=== PATIENT | male | born 1940 | race Caucasian/White ===

== ENCOUNTER 2021-11-21 15:03 | Emergency (ER) | payer OTHER ==
[2021-11-21 17:06] LABS: Absolute Lymphocytes (CBC) 1.8 K/uL (0.7-4.9); Hematocrit 21.3 % (39.6-49.0); Lymphocytes % 24.5 % (15.3-44.8); MPV 7.6 fL (7.6-11.3); RBC Red Blood Cell Count 2.12 M/uL (4.33-5.43)
[2021-11-21 17:11] LABS: Protime INR 1.53
[2021-11-21 17:23] LABS: Albumin 3.6 g/dL (3.4-5.0); Bilirubin Total 0.3 mg/dL (0.2-1.0); Protein, Total 6.3 g/dL (6.4-8.2)
--- NOTE | 2021-11-21 18:02 | RAD REPORT ---
EXAM DESCRIPTION: CT - Abdomen Angio - 11/21/2021 5:50 pm CLINICAL HISTORY: Chest pain radiating to the back. Lower abdominal pain, Rectal bleeding COMPARISON: No comparisons TECHNIQUE: CT angiography of the abdomen and pelvis was performed with MIPs. All CT scans are performed using dose optimization technique as appropriate and may include automated exposure control or mA/KV adjustment according to patient size. FINDINGS: The inferior lung aquino are clear. Cholelithiasis. The liver, spleen, pancreas, right adrenal gland are normal. 8 mm nodule is seen left adrenal gland p robably an adenoma. Left kidney is absent and the right kidney is hypertrophied. Abdominal aorta demonstrates mild plaquing at the origin of the celiac axis, SMA and right renal nadia ry. Mild plaquing also noted at the bifurcation of the abdominal aorta. No aneurysm or dissection see n. No significant flow abnormality is identified. Sigmoid diverticulosis coli is present without diverticulitis. Mild lumbar degenerative changes. IMPRESSION: No significant flow abnormality is identified. Cholelithiasis.
[2021-11-21] MEDS ORDERED: NA CHLORIDE 0.9% 500 ML ONE (18:09)
[2021-11-21 18:14] LABS: Urine Blood Negative (Negative); Urine Glucose Negative (Negative); Urine Protein Negative (Negative); Urine Specific Gravity 1.015 (1.005-1.030)
[2021-11-21 18:36] LABS: Urine Bacteria <20 /HPF (NONE SEEN)
[2021-11-21 18:43] LABS: Urine RBC <5 /HPF (NONE SEEN)
--- NOTE | 2021-11-21 19:31 | ER ---
Nurse's Notes [facility] Name: Inocencio Krishna Age: 81 yrs Sex: Male : 1940 Arrival Date: 11/21/2021 Time: 15:17 Bed 8 Private MD: Regis Jeffery V Diagnosis: GI Bleed;Anemia;Atrial Fibrillation;Anticoagulation Presentation: 11/21 15:36 Chief complaint: Patient states: Blood in my stool on and off for 1 week. Was at my ld1 [place] office this morning - they asked me to come to ER because of blood in my stool. Coronavirus screen: At this time, the client does not indicate any symptoms associated with coronavirus-19. Ebola Screen: No symptoms or risks identified at this time. Initial Sepsis Screen: Does the patient meet any 2 criteria? No. Patient's initial sepsis screen is negative. Does the patient have a suspected source of infection? No. Patient's initial sepsis screen is negative. Risk Assessment: Do you want to hurt yourself or someone else? Patient reports no desire to harm self or others. Onset of symptoms was November 21, 2021. 15:36 Method Of Arrival: Ambulatory ld1 15:36 Acuity: CLARENCE 3 ld1 Triage Assessment: 15:37 General: Appears in no apparent distress. comfortable, Behavior is calm, cooperative, ld1 appropriate for age. Pain: Denies pain. EENT: No signs and/or symptoms were reported regarding the EENT system. Neuro: Level of Consciousness is awake, alert, obeys commands, Oriented to person, place, time, situation. Cardiovascular: Capillary refill < 3 seconds Patient's skin is warm and dry. Respiratory: Airway is patent Respiratory effort is even, unlabored. GI: Abdomen is flat, non-distended, Reports bloody stool. : No signs and/or symptoms were reported regarding the genitourinary system. Derm: No signs and/or symptoms reported regarding the dermatologic system. Musculoskeletal: No signs and/or symptoms reported regarding the musculoskeletal system. Historical: - Allergies: 15:37 No Known Allergies; ld1 - Home Meds: 15:37 Xarelto 2.5 mg oral tab 1 tab 2 times per day [Active]; ld1 - PMHx: 15:37 Atrial fibrillation; Hypertensive disorder; ld1 - PSHx: 15:37 Heart bypass; Left kidney removal; ld1 - Immunization history:: Adult Immunizations up to date, Client reports receiving the 2nd dose of the Covid vaccine. - Social history:: Smoking status: Patient denies any tobacco usage or history of. Patient/guardian denies using alcohol. Screenin:45 Abuse screen: Denies threats or abuse. Denies injuries from another. 6 16:45 Nutritional screening: No deficits noted. Tuberculosis screening: No symptoms or risk [facility] factors identified. Fall Risk Assessment: 16:20 General: PT MOVED FROM LOBBY TO ER ROOM 8. jh6 16:33 General: Appears in no apparent distress. Behavior is calm, cooperative. Pain: 6 Complains of pain in abdomen Pain currently is 3 out of 10 on a pain scale. Cardiovascular: Rhythm is atrial fibrillation. GI: Abdomen is flat, non-distended, Bowel sounds present X 4 quads. Abd is soft and non tender Reports bloody stool, Patient currently denies nausea, vomiting. 17:08 Reassessment: No changes from previously documented assessment. [facility] 17:46 Reassessment: Patient and/or family updated on plan of care and expected duration. Pain ap3 level reassessed. Patient is alert, oriented x 3, equal unlabored respirations, skin warm/dry/pink. 18:57 Reassessment: No changes from previously documented assessment. Patient and/or family ap3 updated on plan of care and expected duration. Pain level reassessed. Patient is alert, oriented x 3, equal unlabored respirations, skin warm/dry/pink. 20:55 General: blood transfusion being done. see paper charting for vitals . as6 11/22 01:58 General: 2nd unit of blood being given, infusion continued during transfer . as6 Vital Signs: 11/21 15:36 BP 111 / 69; Pulse 124; Resp 18; Temp 98.1(TE); Pulse Ox 100% on R/A; Weight 80.74 kg; ld1 Height 6 ft. 2 in. (187.96 cm); Pain 0/10; 17:09 BP 109 / 65; Pulse 114; Resp 17; Pulse Ox 100% ; Pain 2/10; jh6 17:46 BP 126 / 90; Pulse 113; Pulse Ox 100% ; ap3 18:57 BP 104 / 63; Pulse 136; Pulse Ox 100% on R/A; ap3 20:43 BP 111 / 75; Pulse 118; Resp 18 S; Temp 98.4(TE); Pulse Ox 100% on R/A; as6 22:01 BP 118 / 65; Pulse 106; Resp 29 S; Pulse Ox 100% on R/A; as6 22:40 BP 113 / 82; Pulse 113; Resp 20; Pulse Ox 100% on R/A; mw2 23:30 BP 113 / 82; Pulse 108; Resp 24; Pulse Ox 98% on R/A; lp1 06 01:10 BP 102 / 53; Pulse 105; Resp 18 S; Pulse Ox 99% on R/A; as6 01:57 BP 111 / 78; Pulse 110; Resp 20 S; Pulse Ox 100% on R/A; as6 11/21 15:36 Body Mass Index 22.85 (80.74 kg, 187.96 cm) ld1 ED Course: 11/21 15:17 Patient arrived in ED. am2 15:18 Regis Jeffery MD is Private Physician. am2 15:22 Tushar Beth DO is Attending Physician. ms3 15:37 Triage completed. ld1 15:37 Arm band placed on right wrist. ld1 16:45 Bed in low position. Call light in reach. Side rails up X 1. Adult w/ patient. jh6 16:50 Inserted saline lock: 20 gauge in left antecubital area, using aseptic technique. Blood jh6 collected. 16:50 Served as a cardiopulmonary technician and eeg tech during rectal exam. jh6 17:00 COVID swab sent to lab. jh6 17:05 Sigrid Patel, CLOVER is Primary Nurse. jh6 17:52 CT Pelvis Angio In Process Unspecified. EDMS 17:52 CT Abdomen - Angio In Process Unspecified. EDMS 19:12 Primary Nurse role handed off by Sigrid Patel RN kj1 19:12 role handed off by Lisa Neves RN kj1 19:13 Jb Obrien, CLOVER is Primary Nurse. as6 19:26 initiated a transfer with Haritha from [facility]. mw2 19:41 Octaviano Black NP is PHCP. pm1 21:34 contacted [facility] to get a status update on the transfer Haritha said " after the mw2 unit of blood we need a repeat Hemoglobin and Hematocrit but as of right not [facility] doesn't have any beds we can try [facility], but I don't think they will take a hemoglobin of 7.0.". 21:50 initiated a transfer with Eleanor from [facility]. mw2 22:10 [facility] denied due to capacity. Eleanor from [place] [id number] Center is looking for bed placement at [facility]. 22:42 connected Octaviano Black FOREIGN BANKNOTE TELLER TRADER with the Doctor from [facility]. mw2 23:35 [facility] denied due to capacity. Eleanor from [place] [id number] Transfer [place] is trying [facility] [place]. 23:43 connected Octaviano Black NP with the Hospitalist from [facility]. mw2 11/22 00:31 administrative approval given by Haritha Dutta/ patient has been accepted to [address] ICU bed 12/Dr. Pisano accepted the patient in transfer/report to be called to [phone]. 01:35 [facility] ETA 20 minutes. mw2 01:57 Patient transferred, IV remains in place. as6 Administered Medications: 11/21 18:17 Drug: Sodium Chloride 0.9% 500 ml Route: IVPB; Site: left antecubital; jh6 22:14 Follow up: Response: No adverse reaction; IV Status: Completed infusion; IV Intake: as6 500ml 22:03 CANCELLED (Other Intervention Used): Metoprolol 25 mg PO once as6 22:14 Drug: Metoprolol 5 mg Route: IVP; Site: left antecubital; as6 11/22 01:16 Follow up: Response: No adverse reaction as6 00:48 Drug: ProTONIX (pantoprazole) 40 mg Route: IVP; Site: left antecubital; as6 01:16 Follow up: Response: No adverse reaction as6 01:58 Drug: NS 0.9% 500 ml Route: IV; Rate: bolus; Site: left antecubital; as6 01:58 Follow up: Response: No adverse reaction; IV Status: Infusion continued upon transfer as6 Medication: 01:14 VIS not applicable for this client. as6 Intake: 11/21 22:14 IV: 500ml; Total: 500ml. as6 Outcome: 19:31 ER care complete, transfer ordered by ms3 11/22 01:57 Transferred by ground EMS to [facility], Transfer form completed. as6 Condition: stable Instructed on the need for transfer. 01:59 Patient left the ED. as6 Signatures: Dispatcher [employer] EDMS Cheryl Carney, RN RN lp1 Octaviano Black, FOREIGN BANKNOTE TELLER TRADER FOREIGN BANKNOTE TELLER TRADER pm1 Lisa Mesa am2 Lisa Neves RN RN ap3 Yaz Medina mw2 Benedicto, Katheryn kj1 Tushar Beth, DO DO ms3 Aura Faustin RN RN ld1 Jb Obrien RN RN as6 Sigrid Patel RN RN jh6 Corrections: (The following items were deleted from the chart) 11/21 15:39 15:37 PMHx: Hypercholesterolemia; ld1 ld1 17:08 17:05 General: Appears in no apparent distress. Behavior is calm, cooperative, [place] [address] 17:08 17:05 Pain: Complains of pain in abdomen Pain currently is 3 out of 10 on a pain scale. [place] [address] 17:08 17:05 GI: Abdomen is flat, non-distended, Bowel sounds present X 4 quads. Abd is soft [facility] and non tender Reports bloody stool, Patient currently denies nausea, vomiting, [facility] 17:08 17:05 Cardiovascular: Rhythm is atrial fibrillation [place] [address] 17:09 17:08 Inserted saline lock: 20 gauge in left antecubital area, using aseptic technique. [facility] Blood collected. [facility]
--- NOTE | 2021-11-21 19:31 | EDPHYS ---
Physician Documentation [facility] Name: Inocencio Krishna Age: 81 yrs Sex: Male : 1940 Arrival Date: 11/21/2021 Time: 15:17 Bed 8 Private MD: Regis Jeffery V ED Physician Tushar Beth HPI: 11/21 16:15 This 81 yrs old Male presents to ER via Ambulatory with complaints of AFIB, Bloody ms3 Stools. 16:15 The patient presents to the emergency department with rectal bleeding, a moderate ms3 amount, bright red blood with bowel movement, 10 times since symptom onset. Onset: The symptoms/episode began/occurred 2 day(s) ago. Abdominal pain: described as achy, located in the left lower quadrant, that does not radiate. Modifying factors: The symptoms are alleviated by nothing, the symptoms are aggravated by nothing. Associated signs and symptoms: Pertinent negatives: chest pain, shortness of breath. Severity of symptoms: At their worst the symptoms were mild in the emergency department the symptoms are unchanged. Patient states he developed BRB CO with BM on Saturday. He states this returned on Saturday.. Historical: - Allergies: 15:37 No Known Allergies; ld1 - Home Meds: 15:37 Xarelto 2.5 mg oral tab 1 tab 2 times per day [Active]; ld1 - PMHx: 15:37 Atrial fibrillation; Hypertensive disorder; ld1 - PSHx: 15:37 Heart bypass; Left kidney removal; ld1 - Immunization history:: Adult Immunizations up to date, Client reports receiving the 2nd dose of the Covid vaccine. - Social history:: Smoking status: Patient denies any tobacco usage or history of. Patient/guardian denies using alcohol. ROS: 16:39 Constitutional: Negative for fever, and chills. Neck: Negative for injury, pain, and ms3 swelling, Cardiovascular: Negative for chest pain, and palpitations. Respiratory: Negative for shortness of breath, cough, wheezing, and pleuritic chest pain, MS/Extremity: Negative for injury and deformity, Skin: Negative for injury, rash, and discoloration. 16:39 Abdomen/GI: Positive for abdominal pain, rectal bleeding. 16:39 All other systems are negative. Exam: 16:39 Constitutional: This is a well developed, well nourished patient who is awake, alert, ms3 and in no acute distress. Head/Face: Normocephalic, atraumatic. Chest/axilla: Normal chest wall appearance and motion. Nontender with no deformity. Cardiovascular: Regular rate and rhythm with a normal S1 and S2. No gallops, murmurs, or rubs. Normal PMI, no JVD. No pulse deficits. Respiratory: Lungs have equal breath sounds bilaterally, clear to auscultation and percussion. No rales, rhonchi or wheezes noted. No increased work of breathing, no retractions or nasal flaring. 16:39 Skin: Warm, dry with normal turgor. Normal color with no rashes, no lesions, and no evidence of cellulitis. Psych: Awake, alert, with orientation to person, place and time. Behavior, mood, and affect are within normal limits. 16:39 Abdomen/GI: Inspection: abdomen appears normal, Bowel sounds: hyperactive, in all quadrants, Palpation: moderate abdominal tenderness, in the left lower quadrant, Rectal exam: rectal tone normal, Stool: grossly bloody, guaiac positive. Vital Signs: 15:36 BP 111 / 69; Pulse 124; Resp 18; Temp 98.1(TE); Pulse Ox 100% on R/A; Weight 80.74 kg; ld1 Height 6 ft. 2 in. (187.96 cm); Pain 0/10; 17:09 BP 109 / 65; Pulse 114; Resp 17; Pulse Ox 100% ; Pain 2/10; jh6 17:46 BP 126 / 90; Pulse 113; Pulse Ox 100% ; ap3 18:57 BP 104 / 63; Pulse 136; Pulse Ox 100% on R/A; ap3 20:43 BP 111 / 75; Pulse 118; Resp 18 S; Temp 98.4(TE); Pulse Ox 100% on R/A; as6 22:01 BP 118 / 65; Pulse 106; Resp 29 S; Pulse Ox 100% on R/A; as6 22:40 BP 113 / 82; Pulse 113; Resp 20; Pulse Ox 100% on R/A; mw2 23:30 BP 113 / 82; Pulse 108; Resp 24; Pulse Ox 98% on R/A; lp1 11/22 01:10 BP 102 / 53; Pulse 105; Resp 18 S; Pulse Ox 99% on R/A; as6 01:57 BP 111 / 78; Pulse 110; Resp 20 S; Pulse Ox 100% on R/A; as6 11/21 15:36 Body Mass Index 22.85 (80.74 kg, 187.96 cm) ld1 MDM: 11/21 16:14 Patient medically screened. ms3 16:39 Differential diagnosis: gastritis, diverticulitis, hemorrhoids. ms3 19:31 Data reviewed: vital signs, nurses notes, lab test result(s), radiologic studies. Data ms3 interpreted: engine monitor: rate is 114 beats/min, rhythm is atrial fibrillation, with no ectopy, Interpretation: tachycardia, Pulse oximetry: on room air is 100 %. Interpretation: normal. Counseling: I had a detailed discussion with the patient and/or guardian regarding: the historical points, exam findings, and any diagnostic results supporting the discharge/admit diagnosis, lab results, radiology results, the need to transfer to another facility. 21:27 ED course: Transfer center is requesting repeat H\\T\\H post transfusion prior to provider pm1 to provider report. 23:54 Physician consultation: Anastasiia Pisano MD regarding regarding transfer, patient's pm1 condition, and will see patient. 11/21 15:46 Order name: CBC with Diff; Complete Time: 18:25 ms3 11/21 15:46 Order name: CMP; Complete Time: 18:25 ms3 11/21 15:46 Order name: Lipase; Complete Time: 18:25 ms3 11/21 15:46 Order name: Urine Microscopic Only; Complete Time: 18:49 ms3 11/21 15:47 Order name: PT-INR; Complete Time: 18:25 ms3 11/21 15:47 Order name: Type And Screen ms3 11/21 16:37 Order name: CT Pelvis Angio ms3 11/21 16:37 Order name: CT Abdomen - Angio; Complete Time: 18:25 ms3 11/21 16:52 Order name: COVID-19 SARS RT PCR (Document "Date of Onset" if Symptomatic); Complete jh6 Time: 18:25 11/21 18:15 Order name: Urine Dipstick-Ancillary; Complete Time: 18:25 EDMS 11/21 19:38 Order name: ABO/RH no charge; Complete Time: 19:46 EDMS 11/21 19:40 Order name: Packed RBC Leukored EDMS 11/21 23:51 Order name: Packed RBCs (Additional Unit) EDMS 11/21 15:46 Order name: IV Saline Lock; Complete Time: 17:34 ms3 11/21 15:46 Order name: Labs collected and sent; Complete Time: 17:34 ms3 11/21 15:46 Order name: Urine Dipstick-Ancillary (obtain specimen); Complete Time: 19:14 ms3 11/21 23:49 Order name: EKG; Complete Time: 23:50 pm1 11/21 23:49 Order name: EKG - Nurse/Tech; Complete Time: 00:48 pm1 Administered Medications: 18:17 Drug: Sodium Chloride 0.9% 500 ml Route: IVPB; Site: left antecubital; jh6 22:14 Follow up: Response: No adverse reaction; IV Status: Completed infusion; IV Intake: as6 500ml 22:03 CANCELLED (Other Intervention Used): Metoprolol 25 mg PO once as6 22:14 Drug: Metoprolol 5 mg Route: IVP; Site: left antecubital; as6 11/22 01:16 Follow up: Response: No adverse reaction as6 00:48 Drug: ProTONIX (pantoprazole) 40 mg Route: IVP; Site: left antecubital; as6 01:16 Follow up: Response: No adverse reaction as6 01:58 Drug: NS 0.9% 500 ml Route: IV; Rate: bolus; Site: left antecubital; as6 01:58 Follow up: Response: No adverse reaction; IV Status: Infusion continued upon transfer as6 Disposition: 11/21 21:50 Co-signature as Attending Physician, Tushar Beth DO I reviewed the patient's care ms3 provided by the Advanced Practice Provider and agree with the diagnosis and care plan. I personally saw the patient and performed a substantive portion of the visit, including all aspects of the History/Exam/Medical Decision Making. Please see my note within the JOHN note for my [id number] evaluation.. Disposition Summary: 11/21/21 19:31 Transfer Ordered Transfer Location: Other Acute Care Facility ms3 Reason: Higher level of care ms3 Condition: Fair ms3 Problem: new ms3 Symptoms: are unchanged ms3 Accepting Physician: Norris(11/22/21 01:59) as6 Diagnosis - GI Bleed ms3 - Anemia ms3 - Atrial Fibrillation ms3 - Anticoagulation ms3 Forms: - Medication Reconciliation Form ms3 - SBAR form ms3 Signatures: Dispatcher [employer] EDMS Octaviano Black, DON TENONER OPERATOR pm1 Tushar Beth DO DO ms3 Aura Faustin RN RN ld1 Jb Obrien RN RN as6 Sigrid Patel RN RN jh6 Mariana Bronson, LIBBY PA sb3 Corrections: (The following items were deleted from the chart) 15:39 15:37 PMHx: Hypercholesterolemia; ld1 ld1 16:36 15:46 Abdomen Pelvis W Con+CT.RAD.BRZ ordered. EDMS EDMS 22:03 22:03 Metoprolol 25 mg PO once ordered. as6 as6 23:55 19:31 . ms3 pm1 11/22 01:59 05 23[facility]
[2021-11-21] MEDS ORDERED: NA CHLORIDE 0.9% 250 ML ONE (20:27)
[2021-11-21] MEDS ORDERED: METOPROLOL TARTRATE 5 MG/5 ML INJ IV ONE (22:12)
[2021-11-22] MEDS ORDERED: PANTOPRAZOLE 40 MG INJ ONE (00:50)
[2021-11-22 02:17] VITALS: TEMP 98.4
[2021-11-22 02:26] VITALS: BP 111/78; O2SAT 100
--- NOTE | 2021-11-22 07:51 | EKG ---
Test Date: 2021-11-22 Test Time: 00:28:58 Craniologist: VELVET MEASUREMENT RESULTS: Intervals: Rate: 113 VT: QRSD: 96 QT: 384 QTc: 526 [place]: P: VT: QRS: 34 T: 148 INTERPRETIVE STATEMENTS: Atrial fibrillation with rapid ventricular response Incomplete right bundle branch block Nonspecific ST and T wave abnormality Prolonged QT Abnormal ECG No previous ECG available for comparison Electronically Signed On 11-22-21 07:50:17 CDT by Sidney Liu
== END 2021-11-22 01:59 ==
LOC: ER 15:03
PROC: 30233N1 Transfusion of Nonautologous Red Blood Cells into Peripheral Vein, Percutaneous Approach (ICD-10-PCS; principal; 2021-11-22)
DX: D64.9 Anemia, unspecified (principal); I48.91 Unspecified atrial fibrillation; Z79.01 Long term (current) use of anticoagulants; I10 Essential (primary) hypertension; Z95.1 Presence of aortocoronary bypass graft; Z20.822 Contact with and (suspected) exposure to COVID-19
CPT/HCPCS: 96365; 93005; 85025; 36415; 86900; 86850; 85610; 86901; 83690; 80053; 72191; 74175; 96375; 99285; 96366; 36430; U0003; Q9967; C9113; P9016 ×2; J7050; J7040; 81003; 81015